=== PATIENT | female | born 1960 | race Two or more races ===

== ENCOUNTER 2017-04-27 09:55 | Emergency (ER) | payer MEDICAID ==
[~2017-04-27 09:55] MED LIST: BG MC; CLINDAMYCIN HC300 MG PO; GLUCOTROL10 MG PO; GLUCOTROL5 MG PO; HUMULIN R100 U/1 M1 SC; LAC PO; LEVAQUIN750 MG PO; LEVEMIR100 U/M1 SQ; METFORMIN HCL1000 MG PO; MOBIC7.5 MG PO; NOR5 PO; PRINIVIL20 MG PO
[2017-04-27 12:15] VITALS: BP 175/100
== END 2017-04-27 12:34 | disposition short-term general hospital (02) ==
LOC: ED 09:55
DX: H33.21 Serous retinal detachment, right eye (principal); I10 Essential (primary) hypertension; E11.9 Type 2 diabetes mellitus without complications; Z79.4 Long term (current) use of insulin